=== PATIENT | female | born 1980 | race Caucasian/White ===

== ENCOUNTER 2018-06-09 10:20 | Outpatient (CLI) | payer OTHER | END 2018-06-09 10:21 | disposition home or self-care (01) | LOC: SC 10:20 | PROVIDERS: ATTEND Internal Medicine Pulmonary Disease | DX: G47.10 Hypersomnia, unspecified (principal); R41.89 Other symptoms and signs involving cognitive functions and awareness; R06.83 Snoring; G47.8 Other sleep disorders; G47.21 Circadian rhythm sleep disorder, delayed sleep phase type; E66.9 Obesity, unspecified; Z68.32 Body mass index [BMI] 32.0-32.9, adult | CPT/HCPCS: 99203; 99212 ==

== ENCOUNTER 2018-07-01 19:27 | Outpatient (CLI) | payer OTHER | END 2018-07-01 19:28 | disposition home or self-care (01) | LOC: SC 19:27 | PROVIDERS: ATTEND Internal Medicine Pulmonary Disease | DX: R06.83 Snoring (principal); G47.8 Other sleep disorders; G47.10 Hypersomnia, unspecified; R51 Headache | CPT/HCPCS: 95810 ==

== ENCOUNTER 2018-08-04 15:37 | Outpatient (CLI) | payer OTHER | END 2018-08-04 15:38 | disposition home or self-care (01) | LOC: SC 15:37 | PROVIDERS: ATTEND Nurse Practitioner Family | DX: R06.83 Snoring (principal); R53.83 Other fatigue | CPT/HCPCS: 99212; 99213 ==

== ENCOUNTER 2018-08-18 07:54 | Outpatient (CLI) | payer OTHER ==
--- NOTE | 2018-08-18 15:12 | MRI Report ---
Reason: PAIN IN UNSPECIFIED SHOULDER Procedure Date: 08/18/2018 Accession Number: [id number] / [id number] Procedure: MRI - Shoulder RT W/O CPT Code: FULL RESULT: EXAM: RIGHT SHOULDER MRI WITHOUT CONTRAST EXAM DATE: 08/18/2018 08:35 AM. CLINICAL HISTORY: Right shoulder pain since 2002. No known injury. COMPARISON: None. TECHNIQUE: Multiplanar, multisequence T1-weighted and fluid-sensitive sequences of the shoulder without contrast. Other: None. FINDINGS: Acromioclavicular Region: The acromion is type III. The acromioclavicular joint is unremarkable. The coracoacromial and coracoclavicular ligaments are intact. Trace amount of fluid at the subacromial subdeltoid bursa. Glenohumeral Region: No subluxation. No effusion or loose bodies. The articular cartilage is unremarkable. The glenohumeral ligaments and joint capsule are unremarkable. Bone Marrow: No fracture, marrow edema or bone lesions. Labrum: There is T2 hyperintense signal at the superior aspect of the labrum suspicious for a SLAP tear. Musculature/Rotator Cuff: There is supraspinatus and infraspinatus tendinosis. Teres minor and subscapularis tendons are unremarkable. No rotator cuff tear. No edema or fatty atrophy. Biceps Tendon: The long head of the biceps tendon and biceps marco are intact. Other: The subcutaneous tissues are unremarkable. IMPRESSION: 1. Supraspinatus and infraspinatus tendinosis. 2. Findings suspicious for a SLAP tear of the labrum. 3. Trace amount of fluid at the subacromial subdeltoid bursa. [facility] MUSCULOSKELETAL RADIOLOGY SECTION
== END 2018-08-18 07:55 | disposition home or self-care (01) ==
LOC: DI 07:54
PROVIDERS: ATTEND Family Medicine
DX: M75.81 Other shoulder lesions, right shoulder (principal)

== ENCOUNTER 2019-09-03 09:25 | Outpatient (CLI) | payer OTHER | END 2019-09-03 09:26 | disposition short-term general hospital (02) | LOC: EMS 09:25 | PROVIDERS: ATTEND Surgery | DX: S59.902A Unspecified injury of left elbow, initial encounter (principal); W18.39XA Other fall on same level, initial encounter; Y92.009 Unspecified place in unspecified non-institutional (private) residence as the place of occurrence of the external cause | CPT/HCPCS: A0425; A0427 ==